=== PATIENT | female | born 1980 | race Caucasian/White ===

== ENCOUNTER → 2017-03-13 | Outpatient (REF) ==
[~2017-03-13] MED LIST: NO HOME MEDICATIONS
== END ==
LOC: ZLAB.WCH 19:02
DX: Z01.89 Encounter for other specified special examinations (principal)

== ENCOUNTER → 2022-07-27 | Outpatient (CLI) | payer OTHER | LOC: MC.RAD 11:06 | DX: Z12.31 Encounter for screening mammogram for malignant neoplasm of breast (principal) ==